=== PATIENT | female | born 1960 | race Caucasian/White ===

== ENCOUNTER 2020-03-29 12:23 | Outpatient (REF) | payer MEDICAID, SELFPAY | END 2020-03-29 12:24 | disposition home or self-care (01) | LOC: HO.LAB 12:23 | PROVIDERS: Visit Provider Internal Medicine | DX: Z20.822 Contact with and (suspected) exposure to COVID-19 (principal) | CPT/HCPCS: 36415; C9803; U0003; U0005 ==

== ENCOUNTER 2020-04-07 14:04 | Outpatient (REF) | payer MEDICAID, SELFPAY | END 2020-04-07 14:05 | disposition home or self-care (01) | LOC: HO.LAB 14:04 | PROVIDERS: Visit Provider Internal Medicine | DX: Z20.822 Contact with and (suspected) exposure to COVID-19 (principal) | CPT/HCPCS: 36415; C9803; U0003; U0005 ==

== ENCOUNTER 2022-07-25 11:59 | Outpatient (REF) | payer MEDICAID, SELFPAY ==
--- NOTE | ~2022-07-25 | MM_ITS ---
EXAMINATION: MM SCREENING DIGITAL BREAST TOMOSYNTHESIS, BILATERAL CLINICAL INFORMATION: Screening. Asymptomatic. The lifetime risk of breast cancer based on the Tyrer-Cuzick Model is 4%. COMPARISON: Mammography: 09/08/2016, 07/22/2015, 11/05/2013. TECHNIQUE: Digital breast tomosynthesis is performed in both the craniocaudal and mediolateral oblique views along with computer-aided detection (CAD). Synthesized 2D images are generated from the tomosynthesis. FINDINGS: There are scattered areas of fibroglandular density (ACR BI-RADS breast composition Category b). There are no significant masses, abnormal calcifications, or other abnormalities. Parenchymal pattern is similar to prior studies. There is no developing density or architectural abnormality. The axilla and skin contours are unremarkable. No significant changes. MM/MM tomosynthesis screening BI IMPRESSION: No mammographic evidence of malignancy. ASSESSMENT: BI-RADS 1: Negative RECOMMENDATION: Routine annual mammography screening. This patient's information was entered into a reminder system with a target due date for their next mammogram.
== END 2022-07-25 12:00 | disposition home or self-care (01) ==
LOC: HO.MAMMO 11:59
PROVIDERS: PCP Internal Medicine; Visit Provider Internal Medicine
DX: Z12.31 Encounter for screening mammogram for malignant neoplasm of breast (principal)
CPT/HCPCS: 77063; 77067

== ENCOUNTER 2022-09-15 10:09 | Outpatient (REF) | payer MEDICAID, SELFPAY ==
[2022-09-15 14:45] LABS: TSH reflex Free T4 2.95 uIU/mL (0.32-4.0)
[2022-09-18 16:28] LABS: TS Negative Control Passed; TS Panel A 2; TS Panel B 0; TS Positive Control Passed; TSpotTB Negative (Negative)
== END 2022-09-15 10:10 | disposition home or self-care (01) ==
LOC: HO.HHCL 10:09
PROVIDERS: Visit Provider Internal Medicine
DX: Z00.00 Encounter for general adult medical examination without abnormal findings (principal); E03.9 Hypothyroidism, unspecified
CPT/HCPCS: 36415; 84443; 86481

== ENCOUNTER 2023-07-24 12:36 | Outpatient (REF) | payer MEDICAID, SELFPAY ==
--- NOTE | ~2023-07-24 | XR_ITS ---
EXAMINATION: XR CHEST CLINICAL INFORMATION: PT STATES COUGH X 1 WEEK. COMPARISON: This radiograph 02/24/2019 TECHNIQUE: 2 views of the chest were obtained. FINDINGS: The lungs are adequately expanded. Bilateral reticulonodular markings, chronic. No dense focal consolidation, pleural effusion, pulmonary edema or pneumothorax. The cardiomediastinal silhouette is within normal limits for technique and unchanged. No acute osseous abnormality. XR/XR chest 2V IMPRESSION: Bilateral reticulonodular markings, chronic. No superimposed acute pulmonary disease.
== END 2023-07-24 12:37 | disposition home or self-care (01) ==
LOC: HO.HHCX 12:36
PROVIDERS: Visit Provider Nurse Practitioner Family
DX: R05.1 Acute cough (principal)
CPT/HCPCS: 71046

== ENCOUNTER → 2023-07-25 13:21 | Outpatient (RCR) | payer MEDICAID, SELFPAY ==
--- NOTE | 2022-05-03 13:57 | MHC.OT.EP ---
[address] [phone] Occupational Therapy Plan of Care Patient Name: Rhonda Mark Date of Evaluation: 05/03/22 Diagnosis: B/L hand pain Pain Location: B/L hands, specifically at thumb base, some pain/shooting over left volar palm/wrist Pain Score: 6 Pain Scale Used: Numeric (0 - 10) Aggravating Factors: Heavy lifting, grasping Alleviating Factors: Tylenol occasionally, enjoys the warm water Assessment: Rhonda is a 61 yo right hand dominant female presents w/ persistent pain in both hands, worsening over the past few years. She has had cortisone injections in the past which have been helpful, but now referred to OT for continued care. On assessment, she reports primary pain is in both hands at thumb base, left is worse than right and she has pain w/ grind test. She also reports nighttime numbness in left hand and has diminished protective sensation both hands in median nerve distribution. She reports she went to orthotics store and has been measured for a splint. 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 Her gross grasp is very low B/L'ly with 10lb right side and 3lb left gross grasp. 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 Frequency and Duration: The patient will be seen 2x/wk for 4 weeks Short Term Goals: Good follow through w/ HEP Pt to report ease w/ nighttime sleep w/ orthosis wear Pt to demo good follow through w/ heat/cold modalities for comfort Long-Term Goals: Right gross grasp 20lb Left gross grasp 15lb Pt to report good follow through w/ joint protection/activity modification techniques in home Pt to report increasing daily activity and adding element of light cardiovascular exercise Treatment Plan: Therapeutic Exercise Therapeutic Activity Home Exercise Program Splinting Patient Education ADL Training Paraffin Fluidotherapy MHP Cold Packs Joint Mobilization Soft Tissue Mobilization Kinesiotaping Resting wrist orthosis CMC orthoses Electronically Signed By: Lorraine Dolan, DANER/L CHT Please Sign and return to therapist. Thank you once again for your referral.
--- NOTE | 2022-06-19 13:27 | MHC.OT.DC ---
[address] [phone] F: [phone] Occupational Therapy Discharge Note Patient Name: Rhonda Mark Provider: Dr Florence Bautista Diagnosis: B/L hand pain Date of Evaluation: 05/03/22 Date of Discharge: 06/19/22 Treatments to Date: 3 No Shows to Date: 1 Discharge Status: Independent with HEP Patient Elected to Stop Discharge Summary: Rhonda was referred to OT w/ B/L hand pain, primarily in base of thumb, which has responded well to cortisone injections in the past, but has been more persisent recently. She was seen for several visits and had good follow through w/ home program and able to maintain good CMC range initially but fatiguing easily. She has adhesions and tenderness noted at volar base of thumb, question mild/early trigger finger. We have fabricated CMC support orthosis and she will likely benefit from wear, but has not followed up since. She has also been given references for rheumatology or [facility]. Electronically Signed By: HEIDI Mejia/Breanna CHT Reviewed/agree with student documentation: Therapist: Please Sign and return to therapist, thank you for your referral.
== END | disposition home or self-care (01) ==
LOC: HO.OT 05-03 13:01
PROVIDERS: PCP Internal Medicine; Visit Provider Internal Medicine
DX: M79.641 Pain in right hand (principal); M79.642 Pain in left hand
CPT/HCPCS: 29130; 97018; 97110; 97140; 97165; 97760

== ENCOUNTER 2023-08-27 11:21 | Outpatient (REF) | payer MEDICAID, SELFPAY | END 2023-08-27 11:22 | disposition home or self-care (01) | LOC: HO.MAMMO 11:21 | PROVIDERS: PCP Internal Medicine; Visit Provider Internal Medicine | DX: Z12.31 Encounter for screening mammogram for malignant neoplasm of breast (principal) | CPT/HCPCS: 77063; 77067 ==

== ENCOUNTER → 2023-08-27 12:15 | Outpatient (BNV) | payer MEDICAID, SELFPAY | PROVIDERS: PCP Internal Medicine; Visit Provider Radiology Diagnostic Radiology | DX: Z12.31 Encounter for screening mammogram for malignant neoplasm of breast (principal) | CPT/HCPCS: 77063; 77067 ==

== ENCOUNTER 2023-10-25 11:52 | Outpatient (REF) | payer MEDICAID, SELFPAY ==
[2023-10-25 13:12] LABS: MANUAL DIFF FLAG NO
[2023-10-25 13:22] LABS: Basophils Absolute Auto 0.1 X10*3/uL (0.0-0.2); Basophils Percent Auto 0.8 % (0-2); Eosinophils Absolute Auto 0.1 X10*3/uL (0.0-0.4); Eosinophils Percent Auto 1.7 % (0-4); Hemoglobin 12.1 g/dl (12.0-16.0); Imm Gran Abs Auto 0.02 X10*3/uL (0.00-0.03); Imm Gran Pct Auto 0.3 % (0.0-0.4); Lymphocytes Absolute Auto 2.1 X10*3/uL (1.2-4.9); Lymphocytes Percent Auto 32.3 % (20-40); Mean Corpuscular Hemoglobin 23.2 pg (27.0-33.0); Mean Corpuscular Volume 74.9 fL (80.0-98.0); Mean Platelet Volume 10.2 fL (9.4-12.3); Monocytes Absolute Auto 0.3 X10*3/uL (0.1-1.2); Monocytes Percent Auto 4.3 % (2-11); Neutrophils Absolute Auto 3.8 x10*3/uL (2.0-8.3); Neutrophils Percent Auto 60.6 % (45-73); Platelet Count 262 X10*3/uL (160-400); Red Blood Count 5.21 X10*6/uL (4.20-5.50); Red Cell Distribution Width 15.6 % (11.0-16.0); White Blood Count 6.3 X10*3/uL (4.8-10.8)
[2023-10-25 13:58] LABS: Alanine Aminotransferase 16 U/L (0-31); Albumin Level 3.8 g/dL (3.5-5.0); Alkaline Phosphatase 61 U/L (39-117); Anion Gap 14 (12-20); Aspartate Amino Transferase 21 U/L (5-31); Bilirubin Total 0.3 mg/dL (0.0-1.0); Blood Urea Nitrogen 7 mg/dL (9-16); Calcium 9.3 mg/dL (8.4-10.2); Carbon Dioxide 25 mmol/L (22-29); Chloride 106 mmol/L (96-108); Cholesterol 216 mg/dL (<200); Estimated Glomerular Filt Rate > 60; Glucose Random 148 mg/dL (60-115); HDL Cholesterol 69 mg/dL (>40); LDL Cholesterol Calculated 106 mg/dL (<100); Potassium 3.4 mmol/L (3.3-5.1); Sodium 142 mmol/L (135-145); TSH reflex Free T4 0.88 uIU/mL (0.32-4.0); Total Protein 7.1 g/dL (6.5-8.0); Triglycerides 206 mg/dL (<150); Vitamin D 25-OH Total 57.8 ng/mL (>30)
[2023-10-25 14:02] LABS: Estimated Average Glucose 111 mg/dL; Hemoglobin A1c % 5.5 % (<6.0)
[2023-10-25 14:08] LABS: Reflex LDLD? No
== END 2023-10-25 11:53 | disposition home or self-care (01) ==
LOC: HO.HHCL 11:52
PROVIDERS: Visit Provider Internal Medicine
DX: Z00.00 Encounter for general adult medical examination without abnormal findings (principal); E78.1 Pure hyperglyceridemia; E03.9 Hypothyroidism, unspecified
CPT/HCPCS: 36415; 80053; 80061; 82306; 83036; 84443; 85025

== ENCOUNTER 2024-04-29 14:10 | Outpatient (REF) | payer MEDICAID, SELFPAY ==
--- NOTE | ~2024-04-29 | XR_ITS ---
EXAMINATION: XR CHEST CLINICAL INFORMATION: cough COMPARISON: Chest x-ray 07/24/2023 TECHNIQUE: 2 views of the chest were obtained. FINDINGS: The lungs are expanded with prominent interstitial reticular nodular markings in both lungs likely chronic changes. No consolidation seen. There is no effusion. Heart size and poor vascularity is normal. No gross bony abnormality seen. XR/XR chest 2V IMPRESSION: No acute consolidation. Chronic interstitial lung changes, unchanged to 07/16/2023 Electronically signed by: Barrett Scales MD 04/29/2024 03:07 PM VIVIANA
--- OUTSIDE RECORDS SUMMARY | 2024-04-29 17:54 | XMS_ITS | Clinical Summary ---
Author Organization [facility] Facility Address [address] [place] [id number] Care Team Providers Care Comber Setter Name Role Phone Unavailable Primary Care Provider Unavailabl e Allergies No known active allergies Medications ALBUTEROL IN Active Acetaminophen (TYLENOL PO) Take 1 tablet by mouth twice a day 500mg Active atorvastatin (LIPITOR) 20 MG tablet Take 1 tablet by mouth 1 (one) time each day Active fluticasone HFA (Flovent HFA) 110 MCG/ACT inhaler Active levothyroxine (SYNTHROID, LEVOTHROID) 200 MCG tablet Take 1 tablet by mouth 1 (one) time each day 250 mg Active QUEtiapine (SEROquel) 50 MG tablet Take 100 mg by mouth 1 (one) time each day Active tiotropium (Spiriva HandiHaler) 18 MCG per inhalation capsule Active cholecalciferol (VITAMIN D-3) 25 MCG (1000 UT) tablet Take 1,000 Units by mouth at bed time 03/16/2021 Active FeroSul 325 (65 Fe) MG tablet Take 1 tablet by mouth at bed time 03/16/2021 Active loratadine (CLARITIN) 10 MG tablet Take 10 mg by mouth 1 (one) time each day if needed 12/15/2020 Active Active Problems Problem Noted Date Diagnosed Date Chronic kidney disease, stage 2 (mild) 2 Stage 3a chronic kidney disease 05/10/2020 Anemia in chronic kidney disease 05/10/2020 Hyperlipidemia 05/10/2020 Immunizations Name Administration Dates Next Due Tdap 04/08/2020 Family History Medical History Relation Comments Kidney disease Child 1 daughter- renal failure, s/p transplant Hypertension Child 2 Diabetes Sibling Relation Status Comments Child 1 Child 2 Sibling Social History Tobacco Use Types Packs/Day Years Used Date Smoking Tobacco: Every Day Cigarettes Alcohol Use Standard Drinks/Week Comments Yes 0 (1 standard drink = 0.6 oz pure alcohol) Alcoholic Drinks/day: Occasional social drink Comments Unknown Sex and Gender Information Value Date Recorded Sex Assigned at Not on file Legal Sex Female 5:03 PM EST Gender Identity Not on file Sexual Orientation Not on file Last Filed Vital Signs Vital Sign Reading Time Taken Comments Blood Pressure 122/60 03/22/2021 1:27 PM EST Pulse 69 03/22/2021 1:27 PM EST Temperature - - Respiratory Rate - - Oxygen Saturation 96% 03/22/2021 1:27 PM EST Inhaled Oxygen Concentration - - Weight 67.6 kg (149 lb) 11/28/2021 3:50 PM EDT Height - - Body Mass Index - - Plan of Treatment Health Maintenance Due Date Last Done Comments Breast Cancer Screening 1960 Pneumococcal Vaccine: Pediat rics (0 to 5 Years) and At-Risk Patients (6 to 64 Years) (1 of 2 - PCV) 1966 Colorectal Cancer Screening: Annual FOBT 2009 Colorectal Cancer Screening: Colonoscopy 2009 Colorectal Cancer Screening: Sigmoidoscopy 2009 Influenza Vaccine (#1) 2023 Hepatitis B Vaccine Aged Out No longe r eligible based on patient's age to complete this topic Insurance [place]
--- OUTSIDE RECORDS SUMMARY | 2024-04-29 17:54 | XMS_ITS | Encounter Summary ---
Author Organization [employer] Address [address] [place] [address] Care Team Providers Care Gas Burner Operator Name Role Phone Merlene Brantley MD Primary Care Provide r Reason for Visit * Reason Onset Date Comments Results 07/25/2023 Encounter Details Date Type Department Care Team ([facility] Contact Info) Description 07/25/[address] [facility] MEDICINE [address] [place], [place] [phone] Merlene Brantley MD [address] [place], [place] [phone] Results Social History Tobacco Use Types Packs/Day Years Used Date Smoking Tobacco: Every Day Cigarettes Passive Smoke Exposure: Current Smokeless Tobacco: Never Depression Answer Date Recorded Patient Health Questionnaire-9 Score 0 06/08/2022 Housing Stability Answer Date Recorded What is your housing situation today? I have terimaru hernandez 12/20/[address] you li ve. Do you have problems with any of the following? None of the above 12/20/2022 Food Insecurity Answer Date Recorded Within the past 12 months, y ou worried that your food would run out before you got money to buy more: Never True 12/20/2022 Within the past 12 months,th e food you bought just didn't last and you didn't have enough money to get more: Never True Transportation Answer Date Recorded In the past 12 months, has l ack of transportation kept you from medical appts, meetings, work or from getting things needed for daily living? No 12/20/2022 Utilities Answer Date Recorded In the past 12 months, has t he electric, gas, oil or water company threatened to shut off services in your home? No 12/20/2022 Depression Answer Date Recorded Patient Health Questionnaire-2 Score 0 06/08/2022 Comments Unknown Sex and Gender Information Value Date Recorded Sex Assigned at Female 12/26/2021 10:14 AM EDT Legal Sex Female 10:14 AM EDT Gender Identity Choose not to disclose 10:14 AM EDT Sexual Orientation Choose not to disclose 2021 10:14 AM EDT documented as of this encounter Miscellaneous Notes * Telephone Encounter - Isis Townsend RN - 07/25/2023 3:10 PM EDT See message below. RN will forward to Velia Gudino CNP. TC from pt requesting call back regarding Results. Type of results: Xray chest Date when done: 07/23 Facility: [facility] walk in Please contact pt at [phone] * Telephone Encounter - Lashanda Contreras - 07/25/2023 3:01 PM EDT TC from pt requesting call back regarding Results. Type of results: Xray chest Date when done: 07/23 Facility: [facility] walk in Please contact pt at [phone] documented in this encounter Plan of Treatment Not on file documented as of this encounter Visit Diagnoses Not on filedocumented in this encounter Additional Health Concerns Assessment Noted Time PHQ-9 Depression Total Score: 0 06/09/19 23 12:59 PM EDT documented as of this encounter Care Teams Gas Burner Operator Relationship Specialty Start Date End Date Merlene Brantley MD [address] [place] [address] PCP - General Family Medicine 10/19/20 documented as of this encounter
--- OUTSIDE RECORDS SUMMARY | 2024-04-29 17:54 | XMS_ITS | Encounter Summary ---
Author Organization [employer] Address [address] [place] [address] Care Team Providers Care Parts And Service Manager Name Role Phone Merlene Brantley MD Primary Care Provide r Encounter Details Date Type Department Care Team (Late st Contact Info) Description 01/15/2023 Abstract [facility] MEDICINE [address] [place], [place] [phone] Ailyn Vigil Social History Tobacco Use Types Packs/Day Years Used Date Smoking Tobacco: Every Day Cigarettes Passive Smoke Exposure: Current Smokeless Tobacco: Never Depression Answer Date Recorded Patient Health Questionnaire-9 Score 0 06/08/2022 Housing Stability Answer Date Recorded What is your housing situation today? I have teri hernandez 12/20/[address] you [...] AM EDT documented as of this encounter Plan of Treatment Not on file documented as of this encounter Procedures Procedure Name Priority Date/Time Associated Diagnosis Comments PAP/HPV Routine 11/22/2016 documented in this encounter Results * Pap Smear (11/22/2016) Pap Negative for intraephithelial lesion or malignancy Negative for intraephithelial lesion or malignancy, Other HPV Undetected us Historical Provider HEALTH MAINTENANCE Final Result documented in this encounter Visit Diagnoses Not on filedocumented in this encounter Additional Health Concerns Assessment Noted Time PHQ-9 Depression Total Score: 0 06/09/19 23 12:59 PM EDT documented as of this encounter Care Teams Parts And Service Manager Relationship Specialty Start Date End Date Merlene Brantley MD [address] [place] [id number] PCP - General Family Medicine 10/19/20 documented as of this encounter
--- OUTSIDE RECORDS SUMMARY | 2024-04-29 17:54 | XMS_ITS | Encounter Summary ---
Author Organization [employer] Address [address] [place] [address] Care Team Providers Care Land Management Supervisor Name Role Phone Merlene Brantley MD Primary Care Provide r Encounter Details Date Type Department Care Team (Late st Contact Info) Description 09/15/2022 Abstract [facility] MEDICINE [address] [place], [place] [phone] Merlene Brantley MD [address] [place] [address] Social History Tobacco Use Types Packs/Day Years Used Date Smoking Tobacco: Every Day Cigarettes Passive Smoke Exposure: Current Smokeless Tobacco: Never Depression Answer Date Recorded Patient Health Questionnaire-9 Score 0 06/08/2022 Depression Answer Date Recorded Patient Health Questionnaire-2 [...] Procedure Name Priority Date/Time Associated Diagnosis Comments MAMMOGRAPHY Routine 07/25/2022 documented in this encounter Results * Mammography (07/25/2022) Mammogram NEGATIVE Anatomical Region Laterality Modality Other 07/25/2022 Merlene Lewis MD HEALTH MAINTENANCE Fi nal Result documented in this encounter Visit Diagnoses Not on filedocumented in this encounter Additional Health Concerns Assessment Noted Time PHQ-9 Depression Total Score: 0 06/09/19 23 12:59 PM EDT documented as of this encounter Care Teams Land Management Supervisor Relationship Specialty Start Date End Date Merlene Brantley MD [address] [place] [phone] PCP - General Family Medicine 10/19/20 documented as of this encounter
--- OUTSIDE RECORDS SUMMARY | 2024-04-29 17:54 | XMS_ITS | Encounter Summary ---
Author Organization [employer] Address [address] [facility] [address] [address] [place] [address] Care Team Providers Care Program Counselor Name Role Phone Merlene Brantley MD Primary Care Provide r Encounter Details Date Type Department Care Team (Late st Contact Info) Description 08/03/2022 Telephone [facility] MEDICINE [address] [place] [phone] Merlene Brantley MD [address] [place], [place] [phone] Social History Tobacco Use Types Packs/Day Years [...] documented as of this encounter Care Teams Program Counselor Relationship Specialty Start Date End Date Merlene Brantley MD [address] [place] [address] [phone] PCP - General Family Medicine 10/19/20 documented as of this encounter
--- OUTSIDE RECORDS SUMMARY | 2024-04-29 17:54 | XMS_ITS | Encounter Summary ---
Author Organization [employer] Address [address] [place] [address] Care Team Providers Care Clinical Research Management Associate Name Role Phone Merlene Brantley MD Primary Care Provide r Encounter Details Date Type Department Care Team ([facility] st Contact Info) Description 06/15/2022 Orders Only [facility] MEDICINE [address] [place], [place] [phone] Merlene Brantley MD [address] [place], [place] [phone] Social History Tobacco Use Types Packs/Day Years [...] not to disclose 2021 10:14 AM EDT COVID-19 Exposure Response Date Recorded In the last 10 days, have yo u been in contact with someone who was confirmed or suspected to have Coronavirus/COVID-19? No / Unsure 06/08/2022 12:24 PM EDT documented as of this encounter Plan of Treatment Not on file documented as of this encounter Visit Diagnoses Not on filedocumented in this encounter Additional Health Concerns Assessment Noted Time PHQ-9 Depression Total Score: 0 04/13/20 23 12:59 PM EDT documented as of this encounter Care Teams Clinical Research Management Associate Relationship Specialty Start Date End Date Merlene Brantley MD [address] [place] [phone] PCP - General Family Medicine 10/19/20 documented as of this encounter
--- OUTSIDE RECORDS SUMMARY | 2024-04-29 17:54 | XMS_ITS | Encounter Summary ---
Author Organization [employer] Address [address] [place] [address] Care Team Providers Care Wash Oil Pump Operator Helper Name Role Phone Merlene Brantley MD Primary Care Provide r Reason for Visit * Reason Onset Date Comments Med Refill 08/14/2023 Encounter Details Date Type Department Care Team ([facility] st Contact Info) Description 08/14/2023 Telephone [facility] MEDICINE [address] [place], [place] [phone] Merlene Brantley MD [address] [place], [place] [phone] Med Refill Social History Tobacco Use Types Packs/Day Years [...] encounter Miscellaneous Notes * Telephone Encounter - Amarilys Graf LPN - 08/14/2023 9:41 AM EDT Medication pended to PCP. * Telephone Encounter - Ignacio Ramirez - 08/14/2023 9:36 AM EDT TC from pt requesting medication refill. Medications needing refill : QUEtiapine (SEROquel) 100 MG tablet To be sent to: [facility] - [place], [place] - [address] [facility] documented in this encounter Plan of Treatment Not on file documented as of this encounter Visit Diagnoses Not on filedocumented in this encounter Additional Health Concerns Assessment Noted Time PHQ-9 Depression Total Score: 0 06/09/19 23 12:59 PM EDT documented as of this encounter Care Teams Wash Oil Pump Operator Helper Relationship Specialty Start Date End Date Merlene Brantley MD [address] [facility] [place] [address] PCP - General Family Medicine 10/19/20 documented as of this encounter
--- OUTSIDE RECORDS SUMMARY | 2024-04-29 17:55 | XMS_ITS | Encounter Summary ---
Author Organization [employer] Address [address] [place] [address] Care Team Providers Care Painting Technician Name Role Phone Merlene Brantley MD Primary Care Provide r Encounter Details Date Type Department Care Team ([facility] st Contact Info) Description 04/29/2024 1:15 PM EST Office Visit [facility] MED[facility]INE [address] [place], [place] [phone] Merlene Brantley MD [address] [place], [place] [phone] Other constipation (Primary Dx); COPD exacerbation (CMS/HCC) Social History Tobacco Use Types Packs/Day Years Used Date Smoking Tobacco: Every Day Cigarettes Passive Smoke Exposure: Current Smokeless Tobacco: Never Alcohol Use Standard Drinks/Week Comments Never 0 (1 standard drink = 0.6 oz pur e alcohol) Depression Answer Date Recorded Patient Health Questionnaire-9 Score 0 06/08/2022 Housing Stability Answer Date Recorded What is your housing situation today? I do not have housing (Staying with others, in a hotel, in a group home, living outside on the street, on a beach, in a car, or in a park 09/17/[address] you li ve. Do you have problems with any of the following? None of the above 09/17/2023 Food Insecurity Answer Date Recorded Within the past 12 months, y ou worried that your food would run out before you got money to buy more: Sometimes True 2023 Within the past 12 months,th e food you bought just didn't last and you didn't have enough money to get more: Sometimes True 09/17/2023 Transportation Answer Date Recorded In the past 12 months, has l ack of transportation kept you from medical appts, meetings, work or from getting things needed for daily living? No 09/17/2023 Utilities Answer Date Recorded In the past 12 months, has t he electric, gas, oil or water company threatened to shut off services in your home? No 09/17/2023 Depression Answer Date Recorded Patient Health Questionnaire-2 Score 0 06/08/2022 Internet Access Answer Date Recorded Internet Access Q1 Yes 10/29/2023 Internet Access Q2 Not on file 10/29/2023 Comments Unknown Sex and Gender Information Value Date Recorded Sex Assigned at Female 12/26/2021 10:14 AM EDT Legal Sex Female 10:14 AM EDT Gender Identity Choose not to disclose 10:14 AM EDT Sexual Orientation Choose not to disclose 2021 10:14 AM EDT documented as of this encounter Last Filed Vital Signs Vital Sign Reading Time Taken Comments Blood Pressure 140/89 04/29/2024 1:24 PM EST Pulse 95 04/29/2024 1:24 PM EST Temperature 36.1 ??C (97 ??F) 04/29/2024 1:24 PM EST Respiratory Rate 18 04/29/2024 1:24 PM EST Oxygen Saturation 100% 04/29/2024 1:24 PM EST Inhaled Oxygen Concentration - - Weight 59.1 kg (130 lb 3.2 oz) 04/29/2024 1:24 P M EST Height 152.4 cm (5') 04/29/2024 1:24 PM EST Body Mass Index 25.43 04/29/2024 1:24 PM EST documented in this encounter Progress Notes * Merlene Lewis MD - 04/29/2024 1:15 PM EST SUBJECTIVE: Rhonda Mark is a 63 y.o. year old adult who presents for sick visit . Acute Concerns: 2 weeks of coughing spells, SOB, headache, chest tightness, fever, chills, malaise, fatigue Patient today also complained of constipation Social History Social History Narrative Not on file Patient Active Problem List Diagnosis Acquired hypothyroidism Allergic rhinitis Anemia in chronic kidney disease Chronic ankle pain Chronic kidney disease, stage 2 (mild) Chronic obstructive lung disease (CMS/HCC) Hyperlipidemia Stage 3a chronic kidney disease (CMS/HCC) Tobacco dependence syndrome Dyslipidemia Urinary incontinence Bilateral hand pain Health care maintenance Breast cancer screening by mammogram Colon cancer screening Chronic kidney disease Anemia Swelling of left foot Paronychia of toe of left foot due to ingrown toenail Mood disorder (CMS/HCC) Depressive disorder Dysthymia Combined drug dependence excluding opioids (CMS/HCC) Encounter for preventative adult health care examination COPD exacerbation (CMS/HCC) Hypertriglyceridemia Callus of foot Lesion of skin of foot GERD (gastroesophageal reflux disease) Other constipation Encounter for preventive health examination Cervical cancer screening Bilateral carpal tunnel syndrome Mixed stress and urge urinary incontinence Family History Problem Relation Name Age of Onset Thyroid disease Mother Alzheimer's disease Mother Asthma Mother Liver cancer Father COPD Sister Review of Systems Constitutional: Positive for chills, fatigue and fever. Negative for activity change, appetite change, diaphoresis and unexpected weight change. HENT: Positive for congestion, rhinorrhea and sinus pain. Negative for dental problem, drooling, ear discharge, ear pain, facial swelling, hearing loss, mouth sores, nosebleeds, postnasal drip, sinuspressure, sneezing, sore throat, tinnitus, trouble swallowing and voice change. Respiratory: Positive for cough, choking, chest tightness, shortness of breath and wheezing. Negative for apnea and stridor. Cardiovascular: Negative. OBJECTIVE: Vitals: 04/29/24 1324 BP: (!) 140/89 BP Location: Left arm Patient Position: Sitting BP Cuff Size: Adult Pulse: 95 Resp: 18 Temp: 97 ??F (36.1 ??C) TempSrc: Oral SpO2: 100% Weight: 130 lb 3.2 oz (59.1 kg) Height: 5' (1.524 m) Physical Exam Cardiovascular: Rate and Rhythm: Normal rate and regular rhythm. Pulmonary: Effort: Pulmonary effort is normal. Breath sounds: Rhonchi present. Musculoskeletal: Right lower leg: No edema. Left lower leg: No edema. Neurological: Mental Status: Rhonda is alert. Follow Up: No follow-ups on file. Current Outpatient Medications on File Prior to Visit Medication Sig Dispense Refill acetaminophen (Tylenol 8 Hour) 650 MG ER tablet TAKE 2 TABLETS BY MOUTH EVERY 8 HOURS NEEDED. SWALLOW WHOLE WITH WATER DO NOT BREAK, CRUSH, DISSOLVE OR CHEW 120 tablet 1 albuterol (Ventolin HFA) 108 (90 Base) MCG/ACT inhaler Inhale 2 puffs every 4 (four) hours if needed for wheezing. 18 g 2 atorvastatin (Lipitor) 20 MG tablet Take 1 tablet (20 mg) by mouth in the morning. 90 tablet 0 azithromycin (Zithromax) 250 MG tablet Take 2 tabs PO daily x 1d then 1 tab PO daily on D2 to D5 6 tablet 0 azithromycin (Zithromax) 250 MG tablet Take 2 tabs PO daily x 1d then 1 tab PO daily on D2 to D5 6 tablet 0 D3 Super Strength 50 MCG (2000 UT) capsule TAKE 1 CAPSULE BY MOUTH EVERY DAY IN THE MORNING 90 capsule 1 famotidine (Pepcid) 20 MG tablet Take 1 tablet (20 mg) by mouth 2 times daily. 180 tablet 0 FeroSul 325 (65 Fe) MG tablet Take 1 tablet by mouth at bedtime. ipratropium-albuterol (Duo-Neb) 0.5-2.5 mg/3 mL nebulizer solution INHALE 1 AMPULE USING A NEBULIZER EVERY 6 HOURS NEEDED 90 mL 3 levothyroxine (Synthroid, Levoxyl) 200 MCG tablet TAKE 1 TABLET BY MOUTH EVERY DAY BEFORE [id number] tablet 1 loratadine (Claritin) 10 MG tablet TAKE 1 TABLET BY MOUTH ONCE DAILY NEEDED 90 tablet 1 Mometasone Furoate (Asmanex HFA) 200 MCG/ACT aerosol Inhale 2 puffs 2 times daily. 13 g 2 Multiple Vitamins-Minerals (CertaVite/Antioxidants) tablet Take 1 tablet by mouth Once per day. 90 tablet 0 ProAir HFA 108 (90 Base) MCG/ACT inhaler Inhale 2 puffs every 4 (four) hours if needed for shortness of breath or wheezing. 18 g 2 QUEtiapine (SEROquel) 100 MG tablet TAKE 1 TABLET BY MOUTH EVERY MORNING 90 tablet 0 senna (Senokot) 8.6 MG tablet TAKE 1 TABLET BY MOUTH AT BEDTIME 360 tablet 0 Spiriva HandiHaler 18 MCG inhalation capsule USE 1 CAPSULE FOR INHALATION ONCE A DAY DO NOT SWALLOWCAPSULE 30 capsule 2 [DISCONTINUED] cholecalciferol (D3 Super Strength) 50 MCG (2000 UT) capsule Take 1 capsule (50 mcg)by mouth Once per day. TAKE 1 CAPSULE BY MOUTH EVERY DAY IN THE MORNING 90 capsule 0 [DISCONTINUED] loratadine (Claritin) 10 MG tablet TAKE 1 TABLET BY MOUTH ONCE DAILY NEEDED 90 tablet 1 [DISCONTINUED] QUEtiapine (SEROquel) 100 MG tablet Take 1 tablet (100 mg) by mouth in the morning. 90 tablet 0 No current facility-administered medications on file prior to visit. Problem List Items Addressed This Visit Other constipation - Primary I advised to add more water and fiber to her diet I will prescribe MiraLAX for patient Relevant Medications polyethylene glycol, PEG, 3350 (MiraLax) 17 GM/SCOOP powder COPD exacerbation (CMS/HCC) I advised albuterol nebulizations every 4-6 hours as needed I will prescribe levofloxacin 500 mg once a day for 7 days I will prescribe for patient prednisone 60 mg for 5 days Acetaminophen 1000 mg every 8 hours for body aches, fever I ordered an x-ray patient will be contacted with results Relevant Medications levoFLOXacin (Levaquin) 250 MG tablet predniSONE (Deltasone) 20 MG tablet acetaminophen (Tylenol Extra Strength) 500 MG tablet Other Relevant Orders XR Chest 2 Views (Completed) POCT Rapid Influenza B TOSCANO ID NOW (Completed) POCT Rapid Influenza A TOSCANO ID NOW (Completed) POCT Rapid Covid-19 TOSCANO ID NOW (Completed) documented in this encounter Miscellaneous Notes * Assessment & Plan Note - Merlene Lewis MD - 04/29/2024 3:11 PM EST Associated Problem(s): Other constipation I advised to add more water and fiber to her diet I will prescribe MiraLAX for patient * Assessment & Plan Note - Merlene Lewis MD - 04/29/2024 3:10 PM EST Associated Problem(s): COPD exacerbation (CMS/HCC) I advised albuterol nebulizations every 4-6 hours as needed I will prescribe levofloxacin 500 mg once a day for 7 days I will prescribe for patient prednisone 60 mg for 5 days Acetaminophen 1000 mg every 8 hours for body aches, fever I ordered an x-ray patient will be contacted with results documented in this encounter Plan of Treatment Not on file documented as of this encounter Procedures Procedure Name Priority Date/Time Associated Diagnosis Comments POCT INFLUENZA B (ID NOW RAPID MOLECULAR) Routine 04/29/2024 2:15 PM EST COPD exacerbation (CMS/HCC) POCT INFLUENZA A (ID NOW RAPID MOLECULAR) Routine 04/29/2024 2:14 PM EST COPD exacerbation (CMS/HCC) POCT COVID-19 AG TOSCANO ID NOW Routine 04/29/2024 2:13 PM EST COPD exacerbation (CMS/HCC) XR CHEST 2 VIEWS Routine 04/29/2024 2:10 PM EST COPD exacerbation (CMS/HCC) documented in this encounter Results * POCT Rapid Influenza B TOSCANO ID NOW (04/29/2024 2:15 PM EST) Influenza B Negative Negative, Indeterminate [facility] QC Media Lot # [id number] [facility] Lot# Expiration Date [facility] Swab 04/29/2024 2:15 PM EST us Merlene Lewis MD POINT OF CARE TEST EN TER/EDIT ORDERABLES Final Result [facility] [address] [place] [phone] * POCT Rapid Influenza A TOSCANO ID NOW (04/29/2024 2:14 PM EST) Influenza A Negative Negative, Indeterminate [facility] QC Media Lot # [id number] [facility] Lot# Expiration Date [facility] Swab 04/29/2024 2:14 PM EST us Merlene Lewis MD POINT OF CARE TEST EN TER/EDIT ORDERABLES Final Result [facility] [address] [facility] [place] [phone] * POCT Rapid Covid-19 TOSCANO ID NOW (04/29/2024 2:13 PM EST) Coronavirus Antigen PCR Negative Negative, Indeterminate, None Detected, Invalid, Specimen unsatisfactory for evaluation, Weakly Positive QC Media Lot # [id number] Lot# Expiration Date [id number] Swab 04/29/2024 2:13 PM EST us Merlene Lewis MD POINT OF CARE TEST EN TER/EDIT ORDERABLES Final Result * XR Chest 2 Views (04/29/2024 2:10 PM EST) Anatomical Region Laterality Modality Chest Radiographic Isabel ging 04/29/2024 2:10 PM EST Narrative 04/29/2024 3:10 PM EST ?[facility] ?[address] ?[place] [address] ?XRay Report ? Signed ? Patient: Jas,Rhonda ?MR#: [id number] ? : 1960 ?Acct:[id number] ? Age/Sex: 63 / F ?ADM Date: 04/29/24 ? Loc: HO.HHCX ? Attending Dr: Merlene Lewis MD ? Ordering Physician: Merlene Brantley MD ?? Date of Service: 04/29/24 ?? Procedure(s): XR chest 2V ?? Accession Number(s): [id number] ? cc: Merlene Brantley MD ? EXAMINATION: ?? XR CHEST ? CLINICAL INFORMATION: ?? cough ? COMPARISON: ?? Chest x-ray 07/24/2023 ? TECHNIQUE: ?? 2 views of the chest were obtained. ? FINDINGS: ?? The lungs are expanded with prominent interstitial reticular nodular ?? markings in both lungs likely chronic changes. No consolidation seen. ?? There is no effusion. Heart size and poor vascularity is normal. No ?? gross bony abnormality seen. ? XR/XR chest 2V ?? IMPRESSION: ?? No acute consolidation. ? Chronic interstitial lung changes, unchanged to 07/16/2023 ? Electronically signed by: ??Barrett Scales MD ??04/29/2024 03:07 PM EST RP ? Dictated By: ?Barrett Scales MD ? Signed By: ?<Electronically signed by Barrett Scales MD in OV> ?04/29/24 1507 ? DD/ 1410 ? TD/TT: 04/29/24 1422 ? Credit Administrator: MSM ? Procedure Note Donharriet, Image - 04/29/[address] [address] XRay Report Signed Patient: Rhonda MarkMR#: [id number] : 1Acct:[id number] Age/Sex: 63 / FADM Date: 04/29/24 Loc: HO.HHCX Attending Dr: Merlene Lewis MD Ordering Physician: Merlene Brantley MD Date of Service: 04/29/24 Procedure(s): XR chest 2V Accession Number(s): [id number] cc: Merlene Brantley MD EXAMINATION: XR CHEST CLINICAL INFORMATION: cough COMPARISON: Chest x-ray 07/24/2023 TECHNIQUE: 2 views of the chest were obtained. FINDINGS: The lungs are expanded with prominent interstitial reticular nodular markings in both lungs likely chronic changes. No consolidation seen. There is no effusion. Heart size and poor vascularity is normal. No gross bony abnormality seen. XR/XR chest 2V IMPRESSION: No acute consolidation. Chronic interstitial lung changes, unchanged to 07/16/2023 Electronically signed by: Barrett Scales MD 04/29/2024 03:07 PM EST Dictated By: Barrett Scales MD Signed By: <Electronically signed by Barrett Scales MD in OV> 04/29/24 1507 DD/ 1410 TD/TT: 04/29/24 1422 Credit Administrator: PORTIA Merlene Lewis MD IMG XR PROCEDURES Fin al Result documented in this encounter Visit Diagnoses Diagnosis Other constipation- Primary COPD exacerbation (CMS/HCC) Obstructive chronic bronchitis with exacerbation documented in this encounter Additional Health Concerns Assessment Noted Time PHQ-9 Depression Total Score: 0 06/09/19 23 12:59 PM EDT documented as of this encounter Care Teams Painting Technician Relationship Specialty Start Date End Date Merlene Brantley MD [address] [place] [phone] PCP - General Family Medicine 10/19/20 documented as of this encounter
--- OUTSIDE RECORDS SUMMARY | 2024-04-29 17:55 | XMS_ITS | Encounter Summary ---
Author Organization [employer] Address [address] [facility] [address] [place] [address] Care Team Providers Care Net Application Support Specialist Name Role Phone Merlene Brantley MD Primary Care Provide r Reason for Visit * Reason Onset Date Comments Med Refill 04/23/2024 Encounter Details Date Type Department Care Team (Late st Contact Info) Description 04/23/2024 Refill [facility] MED[facility]INE [address] [place], [place] [phone] Merlene Brantley MD [address] [place], [place] [phone] Mood disorder (CMS/HCC) Social History Tobacco Use Types Packs/Day Years Used Date Smoking Tobacco: Every Day Cigarettes Passive Smoke Exposure: Current Smokeless Tobacco: Never Depression Answer Date Recorded Patient Health Questionnaire-9 Score 0 06/08/2022 Housing Stability Answer Date Recorded What is your housing situation today? I do not have housing (Staying with others, in a hotel, in a senior living, living outside on the street, on a [...] Telephone Encounter - Amarilys Graf LPN - 04/23/2024 10:38 AM EST Last seen 09/26/23. * Telephone Encounter - Lenin Tom - 04/23/2024 10:21 AM EST TC from pt requesting medication refill. Medications needing refill : QUEtiapine (SEROquel) 100 MG tablet To be sent to: [facility] - [place], [place] - [address] [facility] documented in this encounter Plan of Treatment Not on file documented as of this encounter Visit Diagnoses Diagnosis Mood disorder (CMS/HCC) Unspecified episodic mood disorder documented in this encounter Additional Health Concerns Assessment Noted Time PHQ-9 Depression Total Score: 0 06/09/19 23 12:59 PM EDT documented as of this encounter Care Teams Net Application Support Specialist Relationship Specialty Start Date End Date Merlene Brantley MD [address] [facility] [place] [address] PCP - General Family Medicine 10/19/20 documented as of this encounter
--- OUTSIDE RECORDS SUMMARY | 2024-04-29 17:55 | XMS_ITS | Clinical Summary ---
Author Organization [employer] Address [address] [facility] [address] [place] [address] Care Team Providers Care Application Dba Name Role Phone Merlene Brantley MD Primary Care Provide r Allergies No known active allergies Medications FeroSul 325 (65 Fe) MG tablet Take 1 tablet by mouth at bedtime. 022 Active Spiriva HandiHaler 18 MCG inhalation capsuleIndication s:Chronic obstructive pulmonary disease, unspecified COPD type (CMS/HCC) USE 1 CAPSULE FOR INHALATION ONCE A DAY DO NOT SWALLOW CAPSULE 30 capsule 2 023 Active azithromycin (Zithromax) 250 MG tabletIndications :COPD exacerbation (CMS/HCC) Take 2 tabs PO daily x 1d then 1 tab PO daily on D2 to D5 6 tablet 023 Active ProAir HFA 108 (90 Base) MCG/ACT inhalerIndication s:Chronic obstructive pulmonary disease, unspecified COPD type (CMS/HCC),COPD exacerbation (CMS/HCC) Inhale 2 puffs every 4 (four) hours if needed for shortness of breath or wheezing. 18 g 2 024 Active azithromycin (Zithromax) 250 MG tabletIndications :COPD exacerbation (CMS/HCC) Take 2 tabs PO daily x 1d then 1 tab PO daily on D2 to D5 6 tablet 024 Active senna (Senokot) 8.6 MG tabletIndications :Other constipation TAKE 1 TABLET BY MOUTH AT BEDTIME 360 tablet 024 Active acetaminophen (Tylenol 8 Hour) 650 MG ER tabletIndications :Chronic ankle pain, unspecified laterality TAKE 2 TABLETS BY MOUTH EVERY 8 HOURS NEEDED. SWALLOW WHOLE WITH WATER DO NOT BREAK, CRUSH, DISSOLVE OR CHEW 120 tablet 1 024 Active Multiple Vitamins-Minerals (CertaVite/Antiox idants) tabletIndications :Acquired hypothyroidism Take 1 tablet by mouth Once per day. 90 tablet 024 Active famotidine (Pepcid) 20 MG tabletIndications :Gastroesophageal reflux disease, unspecified whether esophagitis present Take 1 tablet (20 mg) by mouth 2 times daily. 180 tablet 024 Active atorvastatin (Lipitor) 20 MG tabletIndications :Encounter for preventative adult health care examination Take 1 tablet (20 mg) by mouth in the morning. 90 tablet 024 Active levothyroxine (Synthroid, Levoxyl) 200 MCG tabletIndications :Acquired hypothyroidism TAKE 1 TABLET BY MOUTH EVERY DAY BEFORE BREAKFAST 90 tablet 1 024 Active albuterol (Ventolin HFA) 108 (90 Base) MCG/ACT inhaler Inhale 2 puffs every 4 (four) hours if needed for wheezing. 18 g 2 024 2024 Active ipratropium-albut joyce (Duo-Neb) 0.5-2.5 mg/3 mL nebulizer solutionIndicatio ns:Chronic obstructive pulmonary disease, unspecified COPD type (CMS/HCC) INHALE 1 AMPULE USING A NEBULIZER EVERY 6 HOURS NEEDED 90 mL 3 024 Active Mometasone Furoate (Asmanex HFA) 200 MCG/ACT aerosolIndication s:Chronic obstructive pulmonary disease, unspecified COPD type (CMS/HCC) Inhale 2 puffs 2 times daily. 13 g 2 024 Active QUEtiapine (SEROquel) 100 MG tabletIndications :Mood disorder (CMS/HCC) TAKE 1 TABLET BY MOUTH EVERY MORNING 90 tablet 025 Active D3 Super Strength 50 MCG (2000 UT) capsuleIndication s:Acquired hypothyroidism TAKE 1 CAPSULE BY MOUTH EVERY DAY IN THE MORNING 90 capsule 1 025 Active loratadine (Claritin) 10 MG tabletIndications :Chronic obstructive pulmonary disease, unspecified COPD type (CMS/HCC) TAKE 1 TABLET BY MOUTH ONCE DAILY NEEDED 90 tablet 1 025 Active polyethylene glycol, PEG, 3350 (MiraLax) 17 GM/SCOOP powderIndications :Other constipation Take 17 g by mouth Once per day. 527 g 1 025 2024 Active levoFLOXacin (Levaquin) 250 MG tabletIndications :COPD exacerbation (CMS/HCC) Take 2 tablets (500 mg) by mouth Once per day for 7 days. 14 tablet 025 2024 Active predniSONE (Deltasone) 20 MG tabletIndications :COPD exacerbation (CMS/HCC) Take 3 tablets (60 mg) by mouth Once per day for 5 days. 15 tablet 025 2024 Active acetaminophen (Tylenol Extra Strength) 500 MG tabletIndications :COPD exacerbation (CMS/HCC) Take 2 tablets (1,000 mg) by mouth every 8 (eight) hours if needed for mild pain for up to 10 days. 30 tablet 025 2024 Active loratadine (Claritin) 10 MG tabletIndications :Chronic obstructive pulmonary disease, unspecified COPD type (CMS/HCC) TAKE 1 TABLET BY MOUTH ONCE DAILY NEEDED 90 tablet 1 024 2024 Discontinued(R eorder (will not trigger notification to Pharmacy)) cholecalciferol (D3 Super Strength) 50 MCG (2000 UT) capsuleIndication s:Acquired hypothyroidism Take 1 capsule (50 mcg) by mouth Once per day. TAKE 1 CAPSULE BY MOUTH EVERY DAY IN THE MORNING 90 capsule 024 2024 Discontinued QUEtiapine (SEROquel) 100 MG tabletIndications :Mood disorder (CMS/HCC) Take 1 tablet (100 mg) by mouth in the morning. 90 tablet 024 2024 Discontinued(R eorder (will not trigger notification to Pharmacy)) Active Problems Problem Noted Date Diagnosed Date Encounter for preventive health examination 08/28 Assessment & Plan (09/26/2023 1:19 PM EDT): See HPI Cervical cancer screening 09/26/2023 Bilateral carpal tunnel syndrome 09/26/2023 Assessment & Plan (09/26/2023 1:16 PM EDT): I advise to wear wrist braces at bed time Mixed stress and urge urinary incontinence 09/25 Assessment & Plan (09/26/2023 1:18 PM EDT): I will prescribe for patient pads for urinary incontinence Hypertriglyceridemia 02/14/2023 Callus of foot 02/14/2023 Lesion of skin of foot 02/14/2023 GERD (gastroesophageal reflux disease) Assessment & Plan (02/14/2023 12:33 PM EST): I advise patient to avoid NSAIDs, spicy and acid food, I advise to eat at the same time every day, I advise to elevate the head of the bed and take medications as prescribe Other constipation 02/14/2023 Assessment & Plan (04/29/2024 3:11 PM EST): I advised to add more water and fiber to her diet I will prescribe MiraLAX for patient Assessment & Plan (02/14/2023 12:33 PM EST): Drink more water and increase fiber on diet Encounter for preventative adult health care exa mination 09/15/2022 Assessment & Plan (09/15/2022 10:07 AM EDT): Please refer to HPI COPD exacerbation 09/15/2022 Assessment & Plan (04/29/2024 3:10 PM EST): I advised albuterol nebulizations every 4-6 hours as needed I will prescribe levofloxacin 500 mg once a day for 7 days I will prescribe for patient prednisone 60 mg for 5 days Acetaminophen 1000 mg every 8 hours for body aches, fever I ordered an x-ray patient will be contacted with results Assessment & Plan (05/15/2023 5:04 PM EDT): ED precautions reviewed with patient Albuterol treatment at office, patient was re-evaluated and she was better Swelling of left foot 09/13/2022 Paronychia of toe of left foot due to ingrown to enail 09/13/2022 Mood disorder 09/13/2022 Health care maintenance 06/08/2022 Assessment & Plan (06/08/2022 1:37 PM EDT): colorguard ordered today Mammogram ordered today Next apt will be for PE and PAP Breast cancer screening by mammogram 06/08/2022 Colon cancer screening 06/08/2022 Bilateral hand pain 04/11/2022 Assessment & Plan (04/11/2022 10:25 AM EST): NCS more than 10 years ago, will obtain new NCS. Will request a prescription for left hand brace so she can wear both right and left braces as needed. Counseled to continue using braces for acivities using both hands and especially overnight. Use diclofenac gel qhs and Tylenol BID. 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 Refer to OT. FU with PCP in 3 months. Chronic ankle pain 03/10/2022 Assessment & Plan (06/08/2022 1:35 PM EDT): Acetaminophen 650mg 2 tab Q 8rs PRN I will renew her plate paper work for RMV Chronic kidney disease, stage 2 (mild) 2 Anemia in chronic kidney disease 05/10/2020 Assessment & Plan (06/08/2022 1:35 PM EDT): CBC and BMP will be check with labs It was advise avoid nephrotoxic medications like NSAIDs Hyperlipidemia 05/10/2020 Assessment & Plan (06/08/2022 1:36 PM EDT): Lipid panel will be check with labs Stage 3a chronic kidney disease 05/10/2020 Allergic rhinitis 11/09/2014 Urinary incontinence 11/09/2014 Dysthymia 02/04/2014 Dyslipidemia 08/13/2013 Assessment & Plan (09/26/2023 1:19 PM EDT): Lipid panel ordered Tobacco dependence syndrome 09/18/2011 Acquired hypothyroidism 08/24/2011 Assessment & Plan (09/26/2023 1:18 PM EDT): TSH will be check Assessment & Plan (06/08/2022 1:36 PM EDT): C/w levothyroxine 200mcg daily TSH will be check with labs Chronic obstructive lung disease 08/24/2011 Assessment & Plan (09/26/2023 1:18 PM EDT): C/w current medication regimen Patient educated to avoid exacerbations Assessment & Plan (06/08/2022 1:34 PM EDT): Medications refilled today Chronic kidney disease 08/24/2011 Anemia 08/24/2011 Depressive disorder 08/24/2011 Combined drug dependence excluding opioids 08/23 Encounters Date Type Department Care Team Description 04/29/2024 1:15 PM EST Office Visit [facility] MEDICINE [address] [place] [address] Merlene Brantley MD Other constipation (Primary Dx); COPD exacerbation ([facility]) 04/29/2024 Travel 04/29/2024 Telephone [facility] MEDICINE [address] [place] [address] Merlene Brantley MD Nurse Triage 04/29/2024 Refill [facility] [address] [place] [address] Merlene Brantley MD Chronic obstructive pulmonary disease, unspecified COPD type ([facility]) 04/28/2024 Refill [facility]C MED & PEDS [address] [place], [place] [phone] Naina Rizzo MD Acquired hypothyroidism; Chronic obstructive pulmonary disease, unspecified COPD type ([facility]) 04/23/2024 Refill [facility] MEDIC[facility] [address] [place] [address] Merlene Brantley MD Mood disorder ([facility]) 03/28/2024 9:30 AM EST Office Visit [facility] OPTOMETRY [address] [place] [address] Aguila, Tawnya, OD Presbyopia (Primary Dx) 03/28/2024 Travel 02/05/2024 Refill [facility] MEDICINE [address] [place] [address] Merlene Brantley MD Mood disorder ([facility]/HCC); Chronic obstructive pulmonary disease, unspecified COPD type ([facility]/HCC) from Last 3 Months Immunizations Name Administration Dates Next Due Hep A, Adult 03/23/2005,02/27/2005 Hep B, adult 07/12/2018,03/23/2005,02/27/2005 Pneumococcal Conjugate PCV 20 09/26/2023 Pneumococcal Polysaccharide PPSV23 06/18/2013 Tdap 04/08/2020,01/03/2016 Family History Medical History Relation Name Comments Liver cancer Father Alzheimer's disease Mother Asthma Mother Thyroid disease Mother COPD Sister Relation Name Status Comments Father Mother Sister Social History Tobacco Use Types Packs/Day Years Used Date Smoking Tobacco: Every Day Cigarettes Passive Smoke Exposure: Current Smokeless Tobacco: Never Tobacco Cessation:Ready to Q uit: Not Asked; Counseling Given: Not Answered Alcohol Use Standard Drinks/Week Comments Never 0 (1 standard drink = 0.6 oz pur e alcohol) Depression Answer Date Recorded Patient Health Questionnaire-9 Score 0 06/08/2022 Housing Stability Answer Date Recorded What is your housing situation today? I do not have housing (Staying with others, in a hotel, in a detention, living outside on the street, on a [...] not to disclose 2021 10:14 AM EDT Last Filed Vital Signs Vital Sign Reading [...] Mass Index 25.43 04/29/2024 1:24 PM EST Plan of Treatment Health Maintenance Due Date Last Done Comments CT Colonography 1960 Colonoscopy 1960 FIT 1960 Sigmoidoscopy 1960 Alcohol/Substance Use Screening 1972 Hepatitis A Vaccines (3 of 3 - Hep A Twinrix risk 3-dose series) 08/27/2005 03/23/2005, 02/27/2005 Zoster Vaccines (1 of 2) 2010 RSV Patients and Patients Aged 60 years or older (1 - Risk 60-74 years 1-dose series) 2020 Cervical Cancer Screening 11/22/2021 HPV/Cotest 11/22/2021 11/22/2016, 11/22/2016 Pap Smear 11/22/2021 11/22/2016 Depression Screening 06/09/2023 06/08/2022, 06/09/19 23 COVID-19 Vaccine (3 - season) 2023 08/10/2020, 07/13/2020 Influenza Vaccine (#1) 2023 FOBT 07/05/2024 07/06/2023 Mammogram 08/26/2024 08/27/2023, 06/28, 07/25/2022, Additional history exists SDOH Screening 09/16/2024 09/17/2023 Tobacco Screening 04/29/2025 04/29/2024 Colorectal Cancer Screening 07/05/2026 FIT DNA/Cologuard 07/05/2026 07/06/2023 Lipid Panel 10/24/2028 10/25/2023, 05/27, 04/19/2021, Additional history exists DTaP/Tdap/Td Vaccines (3 - Td or Tdap) 04/08/2030 04/08/2020, 01/03/2016 Hepatitis B Vaccines Completed 07/12/2018, 03/23/2005, 02/27/2005 HIV Screening Completed 04/19/2021 Hepatitis C Screening Completed 04/19/2021 Pneumococcal Vaccine: 50+ Years Completed 09/26/2023, 06/18/2013 HIB Vaccines Aged Out No longer eligi ble based on patient's age to complete this topic HPV Vaccines Aged Out No longer eligi ble based on patient's age to complete this topic IPV Vaccines Aged Out No longer eligi ble based on patient's age to complete this topic Meningococcal Vaccine Aged Out No hazel simeon eligible based on patient's age to complete this topic RSV under 20 months Aged Out No longe r eligible based on patient's age to complete this topic Rotavirus Vaccines Aged Out No longer eligible based on patient's age to complete this topic Procedures Procedure Name Priority Date/Time Associated Diagnosis [...] 04/29/2024 2:10 PM EST COPD exacerbation (CMS/HCC) LIPID PANEL, STANDARD Routine 10/25/2023 11:57 AM EDT Hypertriglyceridemia BI MAMMOGRAM SCREENING TOMOSYNTHESIS BILATERAL Routine 08/27/2023 12:20 PM EDT FIT DNA/COLOGUARD CANCER SCREENING Routine 07/06/2023 [facility] HISTORICAL HEPATITIS C AB W/REFL TO HCV RNA, QN, PCR Routine 04/19/2021 11:13 AM EST HIV 1/2 ANTIGEN/ANTIBODY, FOURTH GENERATION W/RFL Routine 04/19/2021 11:13 AM EST [facility] HISTORICAL HPV MRNA E6/E7 Routine 11/22/2016 12:00 AM EDT PAP/HPV Routine 11/22/2016 from Last 3 Months or Most Recently Relevant to Health Maintenance Results * POCT Rapid Influenza B TOSCANO ID NOW (04/29/2024 2:15 PM EST) Influenza B Negative Negative, Indeterminate [facility] QC Media Lot # [id number] [facility] Lot# Expiration Date [facility] Swab 04/29/2024 2:15 PM EST Merlene Lewis MD POINT OF CARE TEST EN TER/EDIT ORDERABLES Final Result [facility] [address] [place] [address] [phone] * POCT Rapid Influenza A TOSCANO ID NOW (04/29/2024 2:14 PM EST) Influenza A Negative Negative, Indeterminate [facility] QC Media Lot # [id number] [facility] Lot# Expiration Date [facility] Swab 04/29/2024 2:14 PM EST us Merlene Lewis MD POINT OF CARE TEST EN TER/EDIT ORDERABLES Final Result [facility] [address] [place] [address] [phone] * POCT Rapid Covid-19 TOSCANO ID NOW (04/29/2024 2:13 PM EST) Coronavirus Antigen PCR Negative Negative, Indeterminate, None Detected, Invalid, Specimen unsatisfactory for evaluation, Weakly Positive QC Media Lot # [id number] Lot# Expiration Date [id number] Swab 04/29/2024 2:13 PM EST us Merlene Lewis MD POINT OF CARE TEST EN TER/EDIT ORDERABLES Final Result * XR Chest 2 Views (04/29/2024 2:10 PM EST) Anatomical Region Laterality Modality Chest Radiographic Isabel ging 04/29/2024 2:10 PM EST Narrative 04/29/2024 3:10 PM EST ?[facility] ?[address] ?[place] [address] ?XRay Report ? Signed ? Patient: Jas,Rhonda ?MR#: [id number] ? : 1960 ?Acct:[id number] ? Age/Sex: 63 / F ?ADM Date: 04/29/24 ? Loc: HO.HHCX ? Attending Dr: Merlene Lewis MD ? Ordering Physician: Merlene Brantley MD ?? Date of Service: 04/29/24 ?? Procedure(s): XR chest 2V ?? Accession Number(s): [id number] ? cc: Merlene Brantley MD ? EXAMINATION: [...] signed by Barrett Scales MD in OV> ?04/29/241506 ? DD/ 1410 ? TD/TT: 04/29/24 1422 ? Toxicology Teacher: MSM ? Procedure Note Donoteduardter, Image - 04/29/[address] [address] XRay Report Signed Patient: Junior Mark#: [id number] : 1960cct:[id number] Age/Sex: 63 / FADM Date: 04/29/24 Loc: HO.HHCX Attending Dr: Merlene Lewis MD Ordering Physician: Merlene Brantley MD Date of Service: 04/29/24 Procedure(s): XR chest 2V Accession Number(s): [id number] cc: Merlene Brantley MD EXAMINATION: XR CHEST [...] 04/29/24 1507 DD/ 1410 TD/TT: 04/29/24 1422 Toxicology Teacher: PORTIA us Merlene Lewis MD IMG XR PROCEDURES Fin al Result * (ABNORMAL) Lipid Panel, Standard (10/25/2023 11:57 AM EDT) Triglycerides 206(H) <150 mg/dL [facility] Comment:Desirable Triglyceri de: less than 150 mg/dLBorderline High Triglyceride 150-199 mg/dLHigh Triglyceride: 200-499 mg/dLVery High Triglyceride: greater than or equal to 5OO mg/dL Cholesterol 216(H) <200 mg/dL [facility] Comment:Desirable Cholestero l: less than 200 mg/dLBorderline High Cholesterol: 200-239 mg/dLHigh Cholesterol: greater than 239 mg/dL LDL Cholesterol Calculated 106(H) <100 mg/dL [facility] Comment:Desirable LDL: less than 100 mg/dLNear Optimal/Above Optimal LDL: 110- 129 mg/dLBorderline High LDL: 130-159 mg/dLHigh LDL: 160-189 mg/dLVery High LDL: greater than or equal to 190 mg/dL HDL Cholesterol 69 >40 mg/dL [facility] Comment:Desirable HDL: great er than 40 mg/dL Note: This HDL assay may give artificially low results in patients with liver disease. Blood Venous blood specimen / Unknown 10/25/2023 11:57 AM EDT 10/25/2023 1:09 PM EDT us Merlene Lewis MD LAB BLOOD ORDERABLES Final Result [facility] [address] [place] [phone] * BI Mammogram Screening Tomosynthesis Bilateral (08/27/2023 12:20 PM EDT) Anatomical Region Laterality Modality Breast Bilateral Mammography 08/27/2023 12:2 0 PM EDT Narrative 09/17/2023 2:25 PM EDT ? [facility] ? [address] ?[place] [address] ? Mammography Report ? Signed ? Patient: Jas,Rhonda ?MR#: [id number] ? : 1960 ?Acct:[id number] ? Age/Sex: 62 / F ?ADM Date: 08/27/23 ? Loc: HO.MAMMO ? Attending Dr: Merlene Lewis MD ? Ordering Physician: Merlene Brantley MD ?Results: ?? 1Negative ? Date of Service: 08/27/23 ?Follow Up: 1 Year From Orig ?? inal Mammogram ? Procedure(s): MM tomosynthesis screening BI ?? Accession Number(s): [id number] ? cc: Merlene Brantley MD ? EXAMINATION: ?? MM SCREENING DIGITAL BREAST TOMOSYNTHESIS, BILATERAL ? CLINICAL INFORMATION: ? Screening. Asymptomatic. ? COMPARISON: ?? Mammography: This study is compared with prior exams dating back to ?? 2017. ? TECHNIQUE: ?? Digital breast tomosynthesis is performed in both the craniocaudal and ?? mediolateral oblique views along with computer-aided detection (CAD). ?? Synthesized 2D images are generated from the tomosynthesis. ? FINDINGS: ?? There are scattered areas of fibroglandular density (ACR BI-RADS breast ?? composition Category b). ? There are no significant masses, abnormal calcifications, or other ?? abnormalities. ? MM/MM tomosynthesis screening BI ?? IMPRESSION: ?? No mammographic evidence of malignancy. ? ASSESSMENT: ? BI-RADS BI-RADS 1 - Negative ? RECOMMENDATION: ?? Routine annual mammography screening. ? 1 year F/U ? This examination should not preclude the clinical evaluation of a ?? suspicious palpable abnormality. ? This patient's information was entered into a reminder system with a ?? target due date for their next mammogram. ? Dictated By: ?Lisa López MD ? Signed By: ?<Electronically signed by Lisa López MD in OV> ? 09/17/23 1421 ? DD/ 1220 ? TD/TT: ? Toxicology Teacher: ? Procedure Note Donotthiinterpreter, Image - 09/17/2023 [place] [facility] [address] [place] [address] Mammography Report Signed Patient: Rhonda MarkMR#: [id number] : 1Acct:[id number] Age/Sex: 62 / FADM Date: 08/27/23 Loc: HO.MAMMO Attending Dr: Merlene Lewis MD Ordering Physician: Merlene Brantley MDResults: 1Negative Date of Service: 08/27/23Follow Up: 1 Year From Orig inal Mammogram Procedure(s): MM tomosynthesis screening BI Accession Number(s): [id number] cc: Merlene Brantley MD EXAMINATION: MM SCREENING DIGITAL BREAST TOMOSYNTHESIS, BILATERAL CLINICAL INFORMATION: Screening. Asymptomatic. COMPARISON: Mammography: This study is compared with prior exams dating back to 2017. TECHNIQUE: Digital breast tomosynthesis is performed in both the craniocaudal and mediolateral oblique views along with computer-aided detection (CAD). Synthesized 2D images are generated from the tomosynthesis. FINDINGS: There are scattered areas of fibroglandular density (ACR BI-RADS breast composition Category b). There are no significant masses, abnormal calcifications, or other abnormalities. MM/MM tomosynthesis screening BI IMPRESSION: No mammographic evidence of malignancy. ASSESSMENT: BI-RADS BI-RADS 1 - Negative RECOMMENDATION: Routine annual mammography screening. 1 year F/U This examination should not preclude the clinical evaluation of a suspicious palpable abnormality. This patient's information was entered into a reminder system with a target due date for their next mammogram. Dictated By: Lisa López MD Signed By: <Electronically signed by Lisa López MD in OV> 09/17/23 1421 DD/ 1220 TD/TT: Toxicology Teacher: Merlene Lewis MD IMG BI PROCEDURES [place] [facility] Result - Final * FIT DNA/Cologuard Cancer Screening (07/06/2023) Cologuard Cancer Screen Negative Comment:REPEAT IN 3 YRS Stool Result [facility] Historical Provider HEALTH MAINTENANCE Final Result * HEPATITIS C AB W/REFL TO HCV RNA, QN, PCR (04/19/2021 11:13 AM EST) HEPATITIS C ANTIBODY NON-REACT NEETU NON-REACT NEETU [facility] INDEX 0.02 <1.00 [facility] Comment: ?? HCV antibody was non-reactive. There is no laboratory ?? evidence of HCV infection. ?? In most cases, no further action is required. However, if recent HCV exposure is suspected, a test for HCV RNA (test code 32523) is suggested. ?? For additional information please refer to http://education.SafeStore.IntelliWare Systems/faq/XKG18m8 (This link is being provided for informational/ educational purposes only.) ?? 04/19/2021 11:1 3 AM EST Result [facility] Merlene Lewis MD HISTORICAL/NON ORDERA BLE LABS Final Result [facility] [address] * HIV 1/2 ANTIGEN/ANTIBODY,FOURTH GENERATION W/RFL (04/19/2021 11:13 AM EST) HIV-1/2 ANTIGEN AND ANTIBODIES, 4TH GENERATION W/ REFLEX NON-REACT NEETU NON-REACT NEETU [facility] Comment: HIV-1 antigen and HIV-1/HIV-2 antibodies were not detected. There is no laboratory evidence of HIV infection. ?? PLEASE NOTE: This information has been disclosed to you from records whose confidentiality may be protected by state law. ??If your state requires such protection, then the state law prohibits you from making any further disclosure of the information without the specific written consent of the person to whom it pertains, or as otherwise permitted by law. A general authorization for the release of medical or other information is NOT sufficient for this purpose. ? For additional information please refer to http://Sticher.Scoupon/faq/HLE179 (This link is being provided for informational/ educational purposes only.) ? The performance of this assay has not been clinically validated in patients less than 2 years old. ?? 04/19/2021 11:1 3 AM EST Merlene Lewis MD LAB BLOOD ORDERABLES Final Result Performing Organization Address City/State/[facility] Co de Phone Number [facility] [address] * HPV mRNA E6/E7 (11/22/2016 12:00 AM EDT) HPV mRNA E6/E7 Not Detected NOT DETECTED [facility] Comment: This test was performed using the APTIMA(R) HPV Assay ([employer] This assay detects E6/E7 viral messenger RNA (mRNA) from 14 high-risk HPV types (16,18,31,33,35,39,45,51, 52,56,58,59,66,68). For additional information please refer to: http://Sticher.Scoupon/faq/OOR713t6 (This link is being provided for informational/ educational purposes only.) Test Performed by [employer], [facility], [address] [place] [address] Chirag Ferreira M.D., Ph.D., Director of Laboratories , [facility] [id number] Please note: ??Effective 11/08/2015, HPV testing will be performed using [employer]'s APTIMA test which targets mRNA. Detecting mRNA instead of DNA, as in older methods, offers significant improvements in specificity. 11/22/2016 Keyon Lopez MANAGER RETAIL STORE HISTORICAL/NON ORDERABLE LABS Final Result [facility] Pending sale to [facility] [address] * Pap Smear (11/22/2016) Pap Negative for intraephithelial lesion or malignancy Negative for intraephithelial lesion or malignancy, Other HPV Undetected Historical Provider MD HEALTH MAINTENANCE Final Result from Last 3 Months or Most Recently Relevant to Health Maintenance Insurance [facility] C3 Care Teams Application Dba Relationship Specialty Start Date End Date Merlene Brantley MD [address] [place] [phone] PCP - General Family Medicine 10/19/20
--- OUTSIDE RECORDS SUMMARY | 2024-04-29 17:55 | XMS_ITS | Encounter Summary ---
Author Organization [employer] Address [address] [facility] [address] [place] [address] Care Team Providers Care Sheet Metal Worker Supervisor Name Role Phone Merlene Brantley MD Primary Care Provide r Reason for Visit * Reason Comments Med Refill Encounter Details Date Type Department Care Team ([facility] st Contact Info) Description 04/29/2024 Refill [facility] MED[facility]INE [address] [place], [place] [phone] Merlene Brantley MD [address] [place], [place] [phone] Chronic obstructive pulmonary disease, unspecified COPD type (CMS/HCC) Social History Tobacco Use Types Packs/Day [...] as of this encounter Visit Diagnoses Diagnosis Chronic obstructive pulmonary disease, unspecified COPD type (CMS/HCC) documented in this encounter Additional Health Concerns Assessment Noted Time PHQ-9 Depression Total Score: 0 06/09/19 23 12:59 PM EDT documented as of this encounter Care Teams Sheet Metal Worker Supervisor Relationship Specialty Start Date End Date Merlene Brantley MD [address] [place] [id number] PCP - General Family Medicine 10/19/20 documented as of this encounter
--- OUTSIDE RECORDS SUMMARY | 2024-04-29 17:55 | XMS_ITS | Encounter Summary ---
Author Organization [employer] Address [address] [place] [address] Care Team Providers Care Tractor Operator Laser Leveling Name Role Phone Merlene Brantley MD Primary Care Provide r Encounter Details Date Type Department Care Team (Latest Contact Info) Description 04/29/2024 Travel Social History Tobacco Use Types Packs/Day Years [...] with others, in a hotel, in a [place] [facility] [place], living outside on the street, on a [...] documented as of this encounter Care Teams Tractor Operator Laser Leveling Relationship Specialty Start Date End Date Merlene Brantley MD [address] [place] [id number] PCP - General Family Medicine 10/19/20 documented as of this encounter
--- OUTSIDE RECORDS SUMMARY | 2024-04-29 17:55 | XMS_ITS | Encounter Summary ---
Author Organization [employer] Address [address] [facility] 7[address] [place] [address] Care Team Providers Care University Relations Recruiter Name Role Phone Merlene Brantley MD Primary Care Provide r Reason for Visit * Reason Onset Date Comments Nurse Triage 04/29/2024 Encounter Details Date Type Department Care Team ([facility] st Contact Info) Description 04/29/2024 Telephone [facility] MEDICINE [address] [place], [place] [phone] Merlene Brantley MD [address] [place] [address] Nurse Triage Social History Tobacco Use Types Packs/Day Years [...] with others, in a hotel, in a snf, living outside on the street, on a [...] encounter Miscellaneous Notes * Telephone Encounter - Alem Sevilla RN - 04/29/2024 11:02 AM EST Called pt. Daughter On HIPAA from 09/15/22 but, not seeing updated HIPAA form. [phone]- non working number. Called other number and pt. Answered phone. Pt. States she has had a chronic cough x 2 weeks. Pt has been using her inhalers with no relief andslight fever. Pt concerned about Pneumonia. Pt. States that her cough makes her incontinent with urine. Pt. Is SOB and has congested non productive cough. Pt. Also states low back pain and Hx. Of Pneumonia and it feels like when she had Pneumonia. Reminded pt. To sign HIPAA forms to update for daughter to be able to speak on behalf of Mother in future if needed. Protocol Used: Cough (Adult) Protocol-Based Disposition: Go to Office or Video Visit Now-Pt. Has appt today at 115pm with PCP Video visit offer not recorded Positive Triage Questions: * Mild difficulty breathing (e.g., minimal/no SOB at rest, SOB with walking, pulse < 100) and still present when not coughing * Severe coughing spells (e.g., whooping sound after coughing, vomiting after coughing) * Fever returns after gone for over 24 hours and symptoms worse or not improved * Known COPD or other severe lung disease (i.e., bronchiectasis, cystic fibrosis, lung surgery) andsymptoms getting worse (i.e., increased sputum purulence or amount, increased breathing difficulty)< br /> * All higher-acuity triage questions were negative Care Advice Discussed: * Cough Medicines * Cough Syrup With Dextromethorphan * Coughing Spells * Prevent Dehydration * Avoid Tobacco Smoke * Humidifier * Expected Course * Telephone Encounter - Samantha Cullen - 04/29/2024 10:32 AM EST Symptoms: Cough, Asthma Attack - Caller Reports Outcome: Schedule an urgent appointment (within 1 hour) or talk to a nurse or provider soon Reason: Wheezing (high-pitched whistling sound) The caller accepted this outcome. [phone] documented in this encounter Plan of Treatment Not on file documented as of this encounter Visit Diagnoses Not on filedocumented in this encounter Additional Health Concerns Assessment Noted Time PHQ-9 Depression Total Score: 0 06/09/19 23 12:59 PM EDT documented as of this encounter Care Teams University Relations Recruiter Relationship Specialty Start Date End Date Merlene Brantley MD [address] [place] [id number] PCP - General Family Medicine 10/19/20 documented as of this encounter
--- OUTSIDE RECORDS SUMMARY | 2024-04-29 17:55 | XMS_ITS | Encounter Summary ---
Author Organization [employer] Address [address] [facility] [address] [place] [address] Care Team Providers Care Radiography Technician Name Role Phone Merlene Brantley MD Primary Care Provide r Reason for Visit * Reason Comments Med Refill Encounter Details Date Type Department Care Team ([facility] st Contact Info) Description 04/28/2024 Refill [facility] [address] [place], [place] [phone] Naina Rizzo MD [address] [place] [address] Acquired hypothyroidism; Chronic obstructive pulmonary disease, unspecified [...] with others, in a hotel, in a [facility], living outside on the street, on a [...] as of this encounter Visit Diagnoses Diagnosis Acquired hypothyroidism Unspecified hypothyroidism Chronic obstructive pulmonary disease, unspecified COPD type (CMS/HCC) documented in this encounter Additional Health Concerns Assessment Noted Time PHQ-9 Depression Total Score: 0 06/09/19 23 12:59 PM EDT documented as of this encounter Care Teams Radiography Technician Relationship Specialty Start Date End Date Merlene Brantley MD [address] [place] [id number] PCP - General Family Medicine 10/19/20 documented as of this encounter
== END 2024-04-29 14:11 | disposition home or self-care (01) ==
LOC: HO.HHCX 14:10
PROVIDERS: Visit Provider Internal Medicine
DX: J44.1 Chronic obstructive pulmonary disease with (acute) exacerbation (principal)
CPT/HCPCS: 71046

== ENCOUNTER → 2024-04-29 14:10 | Outpatient (BNV) | payer MEDICAID, SELFPAY | PROVIDERS: Visit Provider Radiology Diagnostic Radiology | DX: R05.9 Cough, unspecified (principal) | CPT/HCPCS: 71046 ==

== ENCOUNTER 2024-09-01 12:27 | Outpatient (REF) | payer MEDICAID, SELFPAY ==
--- OUTSIDE RECORDS SUMMARY | 2024-09-01 13:04 | XMS_ITS | Encounter Summary ---
Author Organization [employer] Address [address] [facility] [address] [facility] [address] [place] [address] Care Team Providers Care Environmental Field Services Technician Name Role Phone Merlene Brantley MD Primary Care Provide r Reason for Visit * Reason Onset Date Comments Med Refill 08/14/2023 Encounter Details Date Type Department Care Team ([facility] st Contact Info) Description 08/14/2023 Telephone [facility] MEDICINE [address] [place], [place] [phone] Merlene Brantley MD [address] [place], [place] [phone] Med Refill Social History Tobacco Use Types [...] 100 MG tablet To be sent to: [facility] - [place], [place] - [address] [facility] documented in this encounter Plan of Treatment Upcoming Encounters Date Type Department Care Team (Late st Contact Info) Description 09/29/2024 2:00 PM EDT Office Visit [facility] MED[facility] [address] [place] [address] Merlene Brantley MD [address] [place] [address] documented as of this encounter Visit Diagnoses Not on filedocumented in this encounter Additional Health Concerns Assessment Noted Time PHQ-9 Depression Total Score: 0 06/09/19 23 12:59 PM EDT documented as of this encounter Care Teams Environmental Field Services Technician Relationship Specialty Start Date End Date Merlene Brantley MD [address] [place] [address] PCP - General Family Medicine 10/19/20 documented as of this encounter
== END 2024-09-01 12:28 | disposition home or self-care (01) ==
LOC: HO.MAMMO 12:27
PROVIDERS: PCP Internal Medicine; Visit Provider Internal Medicine
DX: Z12.31 Encounter for screening mammogram for malignant neoplasm of breast (principal)
CPT/HCPCS: 77063; 77067

== ENCOUNTER → 2024-09-01 12:30 | Outpatient (BNV) | payer MEDICAID, SELFPAY | PROVIDERS: PCP Internal Medicine; Visit Provider Internal Medicine | DX: Z12.31 Encounter for screening mammogram for malignant neoplasm of breast (principal) | CPT/HCPCS: 77063; 77067 ==